=== PATIENT | female | born 1970 | race Caucasian/White ===

== ENCOUNTER 2018-06-03 22:32 | Emergency (ER) | payer MEDICAID ==
[~2018-06-03] VITALS: Ht 162.6 cm; Wt 81.2 kg
[2018-06-03 22:40] VITALS: BP 163/89; Ht 162.6 cm; Wt 81.2 kg
== END 2018-06-04 01:01 | disposition home or self-care (01) ==
LOC: ED 22:32
DX: S16.1XXA Strain of muscle, fascia and tendon at neck level, initial encounter (principal); H57.8 Other specified disorders of eye and adnexa; Z88.0 Allergy status to penicillin; X58.XXXA Exposure to other specified factors, initial encounter; Y93.89 Activity, other specified; Y92.89 Other specified places as the place of occurrence of the external cause; Y99.8 Other external cause status
CPT/HCPCS: J1885

== ENCOUNTER 2019-01-24 11:11 | Emergency (ER) | payer MEDICAID ==
[~2019-01-24] VITALS: Ht 162.6 cm; Wt 82.2 kg
[2019-01-24 11:17] VITALS: Ht 162.6 cm; Wt 82.2 kg
[2019-01-24 11:48] VITALS: BP 124/78
== END 2019-01-24 11:48 | disposition home or self-care (01) ==
LOC: ED 11:11
DX: S01.332A Puncture wound without foreign body of left ear, initial encounter (principal); Z88.0 Allergy status to penicillin; X58.XXXA Exposure to other specified factors, initial encounter; Y93.89 Activity, other specified; Y92.89 Other specified places as the place of occurrence of the external cause; Y99.8 Other external cause status